=== PATIENT | male | born 1995 | race Caucasian/White ===

== ENCOUNTER 2020-04-30 06:32 | Emergency (ER) | payer OTHER ==
[~2020-04-30 06:32] MED LIST: COLCRYS0.6 MG PO; INDOCIN 50 MG C50 MG PO; LODINE CAP 300300 MG PO; NAPROSYN500 MG PO; ZOFRAN ODT 4 MG4 MG PO
== END 2020-04-30 07:35 | disposition home or self-care (01) ==
LOC: ER1 06:32
DX: S80.12XA Contusion of left lower leg, initial encounter (principal); I10 Essential (primary) hypertension; W23.0XXA Caught, crushed, jammed, or pinched between moving objects, initial encounter
CPT/HCPCS: 99283